=== PATIENT | male | born 1950 | race Caucasian/White ===

== ENCOUNTER 2017-05-13 08:52 | Outpatient (CLI) | payer MEDICARE, OTHER ==
[2016-02-29 18:00] VITALS: BP 141/72
--- NOTE | 2017-05-13 22:32 | Diagnostic Imaging Report ---
MARNI CHERY [facility] [address] [facility] [address] [place], [place]. [address] Report Submission Date: May 13, 2017 10:26:27 AM CDT Patient Study Name: BONNIE MOE Date: May 13, 2017 9:30:07 AM CDT Modality Type: CT\SR Gender: M Description: CT CHEST W/O CONTRAST : 46 Institution: [facility] Physician: MARNI CHERY Examination: CT chest History: Possible left lung mass. Comparison exams: None available for direct review Technique: CT chest without contrast protocol Findings: Bibasilar parenchymal scarring and atelectasis, left greater than right. Mild posterior pleural thickening. Minimal parenchymal infiltrates involving the superior segment of the right lower lung. Remaining lung leon are without suspicious mass/density. Anterior mediastinum and yasmeen are without pathologic adenopathy or mass the examined technique limit sensitivity. Thoracic aorta demonstrates peripheral atherosclerotic disease. No aneurysmal dilation. Cardiac silhouette is not enlarged. No pericardial fluid. Lower neck structures are without gross abnormality. Osseous structures demonstrate degenerative changes. Old left-sided rib fractures. Upper abdominal organs demonstrates some cystic regions involving the left kidney. No other gross upper abdominal organ irregularity identified. Impression: Lung base scarring and pleural thickening. Minimal right lower lung parenchymal infiltrate/scarring. No evidence for spiculated lesion or suspicious mass density: specifically left upper lung region without gross abnormality. Exam is somewhat limited due to non IV contrast technique. Correlation with previous x-ray recommended when becomes available. Electronically signed on May 13, 2017 10:26:27 AM CDT by: Paul DUNNE
== END 2017-05-13 08:53 ==
LOC: RAD 08:52
PROVIDERS: ATTEND Family Medicine
DX: R22.2 Localized swelling, mass and lump, trunk (principal)
CPT/HCPCS: 71250

== ENCOUNTER 2018-05-29 21:39 | Emergency (ER) | payer MEDICARE, OTHER ==
[2018-05-29] MEDS ORDERED: BUPIVACAINE HCL/PF 5 MG/ML 10ML VIAL IJ ONE (22:03)
[2018-05-29] MEDS ORDERED: NEOMYCIN/BACITRACIN/POLYMYXINB 1 EACH OINT.PACK TP ONE (23:28)
--- NOTE | 2018-05-29 23:33 | ED Physician Documentation ---
General Adult - HISTORIAN Historian: patient, paramedics - HPI Stated Complaint: laceration to lt ear Chief Complaint: Laceration/Recheck/Suture Additional Information: Fell and has lac to left ear. On hospice and refuses a tetanus shot. Non verbal. Non responsive by choice and occasion. - ROS CONST: no problems - PAST HX Past History: other (CVA) Surgeries/Procedures: other (traumatic amputation/sarmiento bilateral arms) Allergies/Adverse Reactions: Allergies Allergy/AdvReac Type Severity Reaction Status Date / Time chlorpromazine HCl Allergy Intermediate Anaphylaxis Verified 05/29/18 21:47 [From Thorazine] NSAIDS (Non-Steroidal Allergy Intermediate Anaphylaxis Verified 05/29/18 21:48 Anti-Inflamma Home Medications: Ambulatory Orders Medication Instructions Recorded Citalopram Hydrobromide 40 mg pe PO DAILY 02/17/16 [Citalopram HBr] Omeprazole [Prilosec] 20 mg PO DAILY 02/17/16 Ondansetron HCl/Pf [Zofran] 4 mg PO Q6H 02/17/16 Oxycodone HCl/Acetaminophen 10 mg PO DAILY 02/17/16 [Percocet 10/325] Trazodone HCl [Desyrel] 100 mg PO HS 02/17/16 Aripiprazole [Abilify] 15 mg PO D 05/29/18 Clonazepam 1 mg PO BID 05/29/18 Clopidogrel Bisulfate [Clopidogrel] 75 mg INH BID 05/29/18 Dicyclomine HCl 10 mg PO BID 05/29/18 Divalproex Sodium [Depakote] 850 mg PO BID 05/29/18 Famotidine [Pepcid] 20 mg PO HS 05/29/18 Finasteride [Proscar] 5 mg PO D 05/29/18 Gabapentin [Neurontin] 100 mg PO QID 05/29/18 Montelukast Sodium [Singulair] 10 mg PO HS 05/29/18 Oxybutynin Chloride 5 mg PO BID 05/29/18 Tamsulosin HCl [Flomax] 0.4 mg PO D 05/29/18 - SOCIAL HX Smoking History: non-smoker - FAMILY HX Family History: No - VITAL SIGNS Vital Signs: Vital Signs Temp Pulse Resp BP Pulse Ox 97.8 F 39 L 18 117/59 96 05/29/18 21:39 05/29/18 21:39 05/29/18 21:39 05/29/18 21:39 05/29/18 21:39 - REVIEWED ASSESSMENTS Nursing Assessment Reviewed: Yes Vitals Reviewed: Yes Procedures Wound Location: head (L ear lobe) Wound Length: 2 cm Wound's Depth, Shape: linear, irregular Wound Explored: clean Betadine Prep?: No (chlorhexadine) Volume of Anesthetic: 1.5 ml Wound Repaired With: sutures Suture Size/Type: 4:0 Number of Sutures: 7 Layer Closure?: No Sterile Dressing Applied?: No Splint Applied?: No ED Results Lab/Radiology - Orders Orders: ED Orders Category Date Time Status Cleanse with NS and Chlorhexid 1T Care 05/29/18 23:28 Ordered Bupivacaine HCl/Pf [Marcaine 0.5%] Med 05/29/18 22:03 Discontinued 50 mg IJ NOW ONE Neomycin/Bacitracin/Polymyxinb [Triple Antibiotic Med 05/29/18 23:28 Once Ointment] 1 each TP NOW ONE General Adult Physical Exam - PHYSICAL EXAM GENERAL APPEARANCE: sleeps, opens eyes occasionally, sometimes answers questions with nod or point EENT: eye inspection normal NECK: normal inspection, supple RESPIRATORY: no resp distress, breath sounds normal CVS: heart sounds normal SKIN: warm/dry, normal color, other (except 2 cm lac left ear lobe with ooxing of blood) EXTREMITIES: other (arms absent) NEURO: CN's nml as tested Discharge Clincal Impression: Laceration of ear lobe Qualifiers: Encounter type: initial encounter Laterality: left Qualified Code(s): S01.312A - Laceration without foreign body of left ear, initial encounter Referrals: Eugenio Washington DO [Primary Care Provider] - 2 Days Additional Instructions: Keep the area clean and dry. You can apply antibiotic ointment to the area twice a day. If your ear seems to be infected, return to the ER or see your primary provider immediately. Ask your provider to remove the stitches in 7 days. Condition: Fair Disposition: 01 HOME, SELF-CARE Decision to Admit: NO Decision Time: 23:35
[2018-05-30 00:09] VITALS: BP 127/63
== END 2018-05-30 00:03 | disposition home or self-care (01) ==
LOC: ED 21:39
DX: S01.312A Laceration without foreign body of left ear, initial encounter (principal); W19.XXXA Unspecified fall, initial encounter; Y92.9 Unspecified place or not applicable; Y93.9 Activity, unspecified; Y99.9 Unspecified external cause status
CPT/HCPCS: 12011; 99282; J3490